=== PATIENT | female | born 1985 | race Caucasian/White ===

== ENCOUNTER 2018-02-13 22:38 | Emergency (ER) | payer OTHER ==
[2018-02-13] MEDS ORDERED: FAMOTIDINE 20 MG/2 ML VIAL IV ONE (23:29)
[2018-02-13] MEDS ORDERED: DICYCLOMINE HCL 10 MG CAP ONE (23:29)
[2018-02-13] MEDS ORDERED: ONDANSETRON 4 MG/2 ML VIAL ONE (23:29)
[2018-02-13] MEDS ORDERED: NA CHLORIDE 0.9% 1,000 ML ONE (23:29)
[2018-02-13 23:42] LABS: Absolute Lymphocytes (CBC) 1.7 K/uL (0.7-4.9); Absolute Monocytes 0.5 K/uL (0.1-1.3); Absolute Neutrophil 10.6 K/uL (1.8-8.0); Basophils % 0.3 % (0-1.3); Eosinophils % 0.5 % (0-4.4); MCH 29.7 pg (27.0-35.0); MCV 85.9 fL (80-100); MPV 9.2 fL (7.6-11.3); Monocytes % 4.2 % (3.3-12.3); RBC Red Blood Cell Count 4.65 M/uL (3.86-4.86)
[2018-02-13 23:54] LABS: Potassium 3.9 mEq/L (3.6-5.0)
[2018-02-14 00:01] LABS: Albumin 4.2 g/dL (3.2-5.5); Bilirubin Direct 0.1 mg/dL (0-0.2); Bilirubin Total 0.7 mg/dL (0.3-1.2); Magnesium 1.8 mg/dL (1.8-2.5); Protein, Total 7.8 g/dL (6.0-8.3)
[2018-02-14 00:37] LABS: Urine Blood 1+ (NEG); Urine Glucose NEGATIVE (NEG); Urine Protein NEGATIVE (NEG); Urine Specific Gravity >1.030 (1.005-1.030); Urine pH 5.5 (5.0-7.0)
[2018-02-14 02:25] LABS: Urine Amorphous Sediment 4+ /HPF (NONE SEEN); Urine Bacteria 20-50 /HPF (<20); Urine Culture Reflex Order NOT NEEDED; Urine RBC NONE SEEN /HPF (NONE SEEN)
--- NOTE | 2018-02-14 04:31 | ER ---
Nurse's Notes [facility] Name: Sasha Denise Age: 32 yrs Sex: Female : 1985 Arrival Date: 02/13/2018 Time: 22:39 Bed 5 Private MD: Luis Russell S Diagnosis: Nausea and vomiting;Diarrhea, unspecified Presentation: 02/13 22:40 Presenting complaint: Patient states: that she has had a lot of stress lately and since Sunday has not been able to eat/drink without abd pain, nausea or vomiting. Also due to the stress her eyes have been twitching. Pt seen by Dr Russell today and was started on Effexor. Transition of care: patient was not received from another setting of care. Onset of symptoms was February 09, 2018. Risk Assessment: Do you want to hurt yourself or someone else? Patient reports no desire to harm self or others. Initial Sepsis Screen: Does the patient meet any 2 criteria? No. Patient's initial sepsis screen is negative. Does the patient have a suspected source of infection? No. Patient's initial sepsis screen is negative. Care prior to arrival: None. 22:40 Method Of Arrival: Ambulatory 22:40 Acuity: EARLINE 3 Triage Assessment: 02/14 03:13 GI: Reports Unable to eat and a nausea sensation. ao IRIDOLOGIST: 05:03 LMP N/A - ao Historical: - Allergies: 02/13 23:04 PENICILLINS; fc - Home Meds: 23:04 levothyroxine 75 mcg oral tab 1 tab once daily [Active]; Xanax 2 mg Oral tab 1 tab fc twice a day [Active]; Effexor Oral 75 mg daily [Active]; - PMHx: 23:04 Anxiety; Hypothyroidism; Depression; fc - PSHx: 23:04 None; fc - Immunization history:: Last tetanus immunization: up to date. - Social history:: Smoking status: Patient/guardian denies using tobacco. - Ebola Screening: : Patient negative for fever greater than or equal to 101.5 degrees Fahrenheit, and additional compatible Ebola Virus Disease symptoms Patient denies exposure to infectious person Patient denies travel to an Ebola-affected area in the 21 days before illness onset. Screenin:02 Abuse screen: Denies threats or abuse. Nutritional screening: No deficits noted. Tuberculosis screening: No symptoms or risk factors identified. Fall Risk None identified. Assessment: 23:09 General: Appears in no apparent distress. comfortable, Behavior is calm, cooperative, ao appropriate for age. Pain: Complains of pain in General weakness Pain does not radiate. Neuro: Level of Consciousness is awake, alert, obeys commands, Oriented to person, place, time, situation, Appropriate for age Moves all extremities. Speech is normal, Facial symmetry appears normal. Cardiovascular: Heart tones S1 S2. Respiratory: Airway is patent Respiratory effort is even, unlabored, Respiratory pattern is regular, symmetrical. GI: Abdomen is non-distended. : No signs and/or symptoms were reported regarding the genitourinary system. EENT: No signs and/or symptoms were reported regarding the EENT system. Derm: Skin is intact, Skin is pink, warm \T\ dry. normal, Skin temperature is warm. Musculoskeletal: Circulation, motion, and sensation intact. Range of motion:. 02/14 00:09 Reassessment: Patient appears in no apparent distress at this time. Patient and/or ao family updated on plan of care and expected duration. Pain level reassessed. Patient is alert, oriented x 3, equal unlabored respirations, skin warm/dry/pink. Patient was taken to the bathroom. 01:36 Reassessment: Patient appears in no apparent distress at this time. Patient and/or ao family updated on plan of care and expected duration. Pain level reassessed. Patient is alert, oriented x 3, equal unlabored respirations, skin warm/dry/pink. 02:20 Reassessment: Patient appears in no apparent distress at this time. Patient and/or ao family updated on plan of care and expected duration. Pain level reassessed. Patient is alert, oriented x 3, equal unlabored respirations, skin warm/dry/pink. 03:11 Reassessment: Patient appears in no apparent distress at this time. Patient and/or ao family updated on plan of care and expected duration. Pain level reassessed. Patient is alert, oriented x 3, equal unlabored respirations, skin warm/dry/pink. Patient denies pain at this time. Patient states feeling better. Vital Signs: 02/13 22:40 BP 129 / 88; Pulse 89; Resp 18; Temp 99.0(O); Pulse Ox 97% on R/A; Weight 105.69 kg (R); Height 5 ft. 5 in. (165.10 cm) (R); Pain 2/10; 02/14 00:09 BP 121 / 84; Pulse 82; Resp 16; Pulse Ox 99% on R/A; Pain 0/10; ao 01:36 BP 121 / 86; Pulse 59; Resp 16; Pulse Ox 100% on R/A; Pain 0/10; ao 02:20 BP 118 / 84; Pulse 61; Resp 18; Pulse Ox 98% on R/A; Pain 0/10; ao 03:11 BP 115 / 100; Pulse 55; Resp 18; Pulse Ox 99% on R/A; Pain 0/10; ao 02/13 22:40 Body Mass Index 38.77 (105.69 kg, 165.10 cm) fc ED Course: 02/13 22:39 Patient arrived in ED. ds1 22:40 Arm band placed on Patient placed in an exam room, on a stretcher. fc 22:40 Patient has correct armband on for positive identification. Placed in gown. Bed in low fc position. Call light in reach. 22:40 No provider procedures requiring assistance completed. fc 22:42 Luis Russell MD is Private Physician. ds1 23:01 Triage completed. fc 23:05 Romario Crowell PA is PHCP. cp 23:05 Romario Drake MD is Attending Physician. cp 23:08 Blaine Donato, RN is Primary Nurse. ao 02/14 02:[address] via wheelchair. kw1 02:44 CT completed. Patient tolerated procedure well. Patient moved back from CT. kw1 02:44 CT Abd/Pelvis - W/Contrast In Process Unspecified. EDMS 04:29 Marge Glez MD is Referral Physician. cp 05:03 IV discontinued, intact, bleeding controlled, No redness/swelling at site. Pressure ao dressing applied. Administered Medications: 02/13 23:38 Drug: Zofran 4 mg Route: PO; ao 02/14 01:39 Follow up: Response: No adverse reaction ao 02/13 23:39 Drug: NS 0.9% 1000 ml Route: IV; Rate: 1 bolus; Site: left antecubital; ao 02/14 01:39 Follow up: IV Status: Completed infusion; IV Intake: 1000ml ao 02/13 23:39 Drug: Bentyl 20 mg Route: PO; ao 02/14 01:39 Follow up: Response: No adverse reaction ao 02/13 23:39 Drug: Pepcid 20 mg Route: PO; ao 02/14 01:39 Follow up: Response: No adverse reaction ao 04:50 Drug: GI Cocktail without - (Maalox Suspension 30 ml, Lidocaine Liquid 2 % 15 ao ml) Route: PO; 05:02 Follow up: Response: No adverse reaction ao Intake: 01:39 IV: 1000ml; Total: 1000ml. ao Outcome: 04:30 Discharge ordered by . gabrielle 05:03 Discharged to home ambulatory. ao 05:03 Condition: stable 05:03 Discharge instructions given to patient, Instructed on discharge instructions, follow up and referral plans. Demonstrated understanding of instructions, follow-up care, medications, Prescriptions given X 3. 05:04 Patient left the ED. ao Signatures: Dispatcher [employer] EDMS Astrid Crump RN RN fc Sanford, Demi ds1 Romario Crowell PA PA cp Ortiz, Alex, RN RN ao Wilhelm, Kimberly kw1
--- NOTE | 2018-02-14 04:31 | EDPHYS ---
Physician Documentation [facility] Name: Sasha Denise Age: 32 yrs Sex: Female : 1985 Arrival Date: 02/13/2018 Time: 22:39 Bed 5 Private MD: Luis Russell S ED Physician Romario Drake HPI: 02/13 23:16 This 32 yrs old Female presents to ER via Ambulatory with complaints of cp Nausea/Vomiting, Can't Eat. 23:16 The patient presents to the emergency department with nausea, that is moderate, cp vomiting, that is intermittent, diarrhea, that is continuous, abdominal pain, of the abdomen diffusely. Onset: The symptoms/episode began/occurred 4 day(s) ago. 23:16 Possible causes: stress. cp DIRECTOR OF EDUCATION AND TRAINING: 02/14 05:03 LMP N/A - ao Historical: - Allergies: 02/13 23:04 PENICILLINS; fc - Home Meds: 23:04 levothyroxine 75 mcg oral tab 1 tab once daily [Active]; Xanax 2 mg Oral tab 1 tab fc twice a day [Active]; Effexor Oral 75 mg daily [Active]; - PMHx: 23:04 Anxiety; Hypothyroidism; Depression; fc - PSHx: 23:04 None; fc - Immunization history:: Last tetanus immunization: up to date. - Social history:: Smoking status: Patient/guardian denies using tobacco. - Ebola Screening: : Patient negative for fever greater than or equal to 101.5 degrees Fahrenheit, and additional compatible Ebola Virus Disease symptoms Patient denies exposure to infectious person Patient denies travel to an Ebola-affected area in the 21 days before illness onset. ROS: 23:20 Constitutional: Positive for poor PO intake, Negative for body aches, chills, fever. cp 23:20 Eyes: Negative for injury, pain, redness, and discharge. cp 23:20 ENT: Negative for drainage from ear(s), ear pain, sore throat, difficulty swallowing, cp difficulty handling secretions. 23:20 Cardiovascular: Negative for chest pain, edema, palpitations. 23:20 Respiratory: Negative for cough, shortness of breath, wheezing. 23:20 Abdomen/GI: Positive for abdominal pain, nausea, vomiting, and diarrhea, anorexia, Negative for constipation, dysphagia, black/tarry stool, rectal bleeding. 23:20 Back: Negative for radiated pain. 23:20 : Negative for urinary symptoms, pelvic pain, flank pain. 23:20 Skin: Negative for cellulitis, rash. 23:20 Neuro: Negative for altered mental status, headache, weakness. 23:20 All other systems are negative. cp Exam: 23:25 Constitutional: The patient appears in no acute distress, alert, awake, cp non-diaphoretic, non-toxic, well developed, well nourished. 23:25 Head/Face: Normocephalic, atraumatic. cp 23:25 Eyes: Periorbital structures: appear normal, Pupils: equal, round, and reactive to light and accomodation, Extraocular movements: intact throughout, Conjunctiva: normal, no exudate, no injection, Sclera: no appreciated abnormality, Lids and lashes: appear normal, bilaterally. 23:25 ENT: External ear(s): are unremarkable, Ear canal(s): are normal, clear, TM's: bulging, is not appreciated, bilaterally, dullness, bilaterally, erythema, is not appreciated, bilaterally, Nose: is normal, Mouth: Lips: dry, Oral mucosa: moist, Posterior pharynx: is normal, airway is patent, no erythema, no exudate, Voice: is normal. 23:25 Neck: ROM/movement: is normal, is supple, without pain, no range of motions limitations, no meningismus, no nuchal rigidity, Lymph nodes: no appreciated lymphadenopathy. 23:25 Chest/axilla: Inspection: normal, Palpation: is normal, no crepitus, no tenderness. 23:25 Cardiovascular: Rate: normal, Rhythm: regular. cp 23:25 Respiratory: Lungs have equal breath sounds bilaterally, clear to auscultation and cp percussion. No rales, rhonchi or wheezes noted. No increased work of breathing, no retractions or nasal flaring. 23:25 Abdomen/GI: Inspection: abdomen appears normal, Bowel sounds: active, all quadrants, Palpation: soft, in all quadrants, mild abdominal tenderness, in all quadrants, rebound tenderness, is not appreciated, voluntary guarding, is not appreciated, involuntary guarding, is not appreciated. 23:25 Back: pain, is absent, ROM is normal. 23:53 ECG was reviewed by the Attending Physician. cp Vital Signs: 22:40 BP 129 / 88; Pulse 89; Resp 18; Temp 99.0(O); Pulse Ox 97% on R/A; Weight 105.69 kg fc (R); Height 5 ft. 5 in. (165.10 cm) (R); Pain 2/10; 02/14 00:09 BP 121 / 84; Pulse 82; Resp 16; Pulse Ox 99% on R/A; Pain 0/10; ao 01:36 BP 121 / 86; Pulse 59; Resp 16; Pulse Ox 100% on R/A; Pain 0/10; ao 02:20 BP 118 / 84; Pulse 61; Resp 18; Pulse Ox 98% on R/A; Pain 0/10; ao 03:11 BP 115 / 100; Pulse 55; Resp 18; Pulse Ox 99% on R/A; Pain 0/10; ao 02/13 22:40 Body Mass Index 38.77 (105.69 kg, 165.10 cm) fc MDM: 02/13 23:06 Patient medically screened. cp 02/14 00:00 Differential diagnosis: gastritis, cholecystitis, pancreatitis, appendicitis, viral cp gastroenteritis, gastroenteritis, colitis, dehydration. 04:23 Data reviewed: vital signs, nurses notes, lab test result(s), radiologic studies, CT cp scan. Transition of care: After a detail discussion of the patient's case, care is transferred to Romario Drake MD. 02/13 23:18 Order name: Amylase, Serum; Complete Time: 01:01 cp 02/13 23:18 Order name: Basic Metabolic Panel; Complete Time: 01: cp 02/14 04:31 Interpretation: Normal except: GFR 74. cp 02/13 23:18 Order name: CBC with Diff; Complete Time: 01: cp 02/14 04:30 Interpretation: Normal except: WBC 12.9; JACKELINE% 82.0; LYM% 13.0; NEUT A 10.6. cp 02/13 23:18 Order name: Creatinine for Radiology; Complete Time: 01: cp 02/13 23:18 Order name: Hepatic Function; Complete Time: 01: cp 02/13 23:18 Order name: Lipase; Complete Time: 01: cp 02/13 23:18 Order name: Urine Microscopic Only; Complete Time: 03:34 cp 02/14 03:34 Interpretation: Normal except: UWBC 5-10; UBACT 20-50; SQEPI 5-10; AMORPH 4+. cp 02/13 23:18 Order name: Magnesium; Complete Time: 01:01 cp 02/14 00:19 Order name: Urine Dipstick--Ancillary (enter results); Complete Time: 01:01 rg2 02/14 00:19 Order name: Urine --Ancillary (enter results); Complete Time: 01:01 rg2 02/14 01:01 Order name: CT Abd/Pelvis - W/Contrast cp 02/13 23:18 Order name: Urine Test (obtain specimen); Complete Time: 01:40 cp 02/13 23:18 Order name: IV Saline Lock; Complete Time: 23:25 cp 02/13 23:18 Order name: Labs collected and sent; Complete Time: 23:25 cp 02/13 23:18 Order name: Urine Dipstick-Ancillary (obtain specimen); Complete Time: 01:40 cp 02/13 23:18 Order name: EKG; Complete Time: 23:18 cp 02/13 23:18 Order name: EKG - Nurse/Tech; Complete Time: 01:40 cp 02/14 04:26 Order name: PO challenge; Complete Time: 04:47 cp EC/13 23:53 Rate is 71 beats/min. Rhythm is regular. NE interval is normal. QRS interval is normal. cp QT interval is normal. No ST changes noted. Interpreted by me. Reviewed by me. Administered Medications: 23:38 Drug: Zofran 4 mg Route: PO; ao 02/14 01:39 Follow up: Response: No adverse reaction ao 02/13 23:39 Drug: NS 0.9% 1000 ml Route: IV; Rate: 1 bolus; Site: left antecubital; ao 02/14 01:39 Follow up: IV Status: Completed infusion; IV Intake: 1000ml ao 02/13 23:39 Drug: Bentyl 20 mg Route: PO; ao 02/14 01:39 Follow up: Response: No adverse reaction ao 02/13 23:39 Drug: Pepcid 20 mg Route: PO; ao 02/14 01:39 Follow up: Response: No adverse reaction ao 04:50 Drug: GI Cocktail without - (Maalox Suspension 30 ml, Lidocaine Liquid 2 % 15 ao ml) Route: PO; 05:02 Follow up: Response: No adverse reaction ao Disposition: 07:17 Co-signature as Attending Physician, Romario Drake MD I agree with the assessment and [facility] plan of care. Disposition: 02/14/18 04:30 Discharged to Home. Impression: Nausea and vomiting, Diarrhea, unspecified. - Condition is Stable. - Discharge Instructions: Food Choices to Help Relieve Diarrhea, Adult, Diarrhea, Nausea and Vomiting. - Prescriptions for Bentyl 20 mg Oral Tablet - take 1 tablet by ORAL route every 6 hours As needed; 30 tablet. Pepcid 20 mg Oral Tablet - take 1 tablet by ORAL route every 12 hours for 10 days; 20 tablet. Zofran 4 mg Oral Tablet - take 1 tablet by ORAL route every 12 hours As needed; 20 tablet. - Medication Reconciliation Form, Thank You Letter, Antibiotic Education, Prescription Opioid Use form. - Follow up: Marge Glez MD; When: 1 - 2 days; Reason: Recheck today's complaints. - Problem is new. - Symptoms have improved. Signatures: Dispatcher [employer] EDTX Romario Drake MD MD cha Chretien, Felicia, RN RN Romario Crowell PA PA Blaine Mccall, RN RN ao Corrections: (The following items were deleted from the chart) 04:30 03:34 Normal except: WBC 12.9. cp cp 05:04 04:30 02/14/2018 04:30 Discharged to Home. Impression: Nausea and vomiting; Diarrhea, ao unspecified. Condition is Stable. Forms are Medication Reconciliation Form, Thank You Letter, Antibiotic Education, Prescription Opioid Use. Follow up: Marge Glez; When: 1 - 2 days; Reason: Recheck today's complaints. Problem is new. Symptoms have improved. cp
[2018-02-14] MEDS ORDERED: LIDOCAINE VISCOUS 2% SOLN 15 ML UDC ONE (04:53)
[2018-02-14] MEDS ORDERED: MAGNE/ALUM HYDROXD 30 ML UCUP ONE (04:53)
[2018-02-14 05:35] VITALS: TEMP 99
[2018-02-14 05:40] VITALS: BP 115/100; O2SAT 99
--- NOTE | 2018-02-14 08:25 | EKG ---
Test Date: 2018-02-13 Test Time: 23:49:24 Supervisor Grounds: JO-ANN MEASUREMENT RESULTS: Intervals: Rate: 71 NM: 116 QRSD: 78 QT: 386 QTc: 419 [place]: P: 35 NM: 116 QRS: 25 T: 8 INTERPRETIVE STATEMENTS: Normal sinus rhythm with sinus arrhythmia Nonspecific T wave abnormality Abnormal ECG Compared to ECG 09/11/2017 20:39:52 T-wave abnormality now present ST (T wave) deviation no longer present Possible ischemia no longer present Electronically Signed On 02-14-18 08:24:30 CDT by Jair Potts
--- NOTE | 2018-02-14 08:58 | RAD REPORT ---
EXAM DESCRIPTION: CTAbdomen Pelvis W Contrast - 02/14/2018 7:16 am CLINICAL HISTORY: Abdominal pain. N/V/D;Abd pain COMPARISON: Chest For Pe Angio dated 09/11/2017 None. TECHNIQUE: Biphasic CT imaging of the abdomen and pelvis was performed with 100 ml non-ionic IV cont rast. All CT scans are performed using dose optimization technique as appropriate and may include automated exposure control or mA/KV adjustment according to patient size. FINDINGS: The lung bases are clear. The liver, spleen, pancreas, adrenal glands and kidneys are within normal limits. No bowel obstruction, free air, free fluid or abscess. The appendix is normal. No evidence of signi ficant lymphadenopathy. No suspicious bony findings. IMPRESSION: No acute intra-abdominal or pelvic finding.
== END 2018-02-14 05:04 | disposition home or self-care (01) ==
LOC: ER 22:38
DX: R19.7 Diarrhea, unspecified (principal); F41.9 Anxiety disorder, unspecified; F32.9 Major depressive disorder, single episode, unspecified; E03.9 Hypothyroidism, unspecified; Z88.0 Allergy status to penicillin
CPT/HCPCS: 36415; 74177; 80048; 80076; 81003; 81015; 81025; 82150; 83690; 83735; 85025; 93005; 96360; 96361; 99284; J2405; J7030; Q9967

== ENCOUNTER 2018-11-07 17:31 | Emergency (ER) | payer OTHER ==
--- OUTSIDE RECORDS SUMMARY | 2018-11-07 17:33 | XMS REPORT ---
:1985 Author Organization [facility] Address [address] [place] [address] Dr. Fry [address] [place] [id number] Care Team Providers Name Role Phone Unavailable Unavailable Unavailable Problems This patient has no known problems. Allergies, Adverse Reactions, Alerts This patient has no known allergies or adverse reactions. Medications This patient has no known medications.
[2018-11-07 21:11] LABS: Absolute Lymphocytes (CBC) 1.6 K/uL (0.7-4.9); Absolute Monocytes 0.5 K/uL (0.1-1.3); Absolute Neutrophil 4.5 K/uL (1.8-8.0); Basophils % 0.9 % (0-1.3); Eosinophils % 1.6 % (0-4.4); Hematocrit 40.3 % (36.0-45.0); Lymphocytes % 23.2 % (15.3-44.8); MPV 9.7 fL (7.6-11.3); Monocytes % 7.1 % (3.3-12.3); RBC Red Blood Cell Count 4.55 M/uL (3.86-4.86)
[2018-11-07] MEDS ORDERED: NA CHLORIDE 0.9% 1,000 ML ONE (21:19)
[2018-11-07] MEDS ORDERED: MORPHINE 4 MG/ML SYR ONE (21:19)
[2018-11-07 21:25] LABS: ALT/SGPT 25 U/L (12-78); AST/SGOT 16 U/L (15-37); Albumin 3.5 g/dL (3.4-5.0); Alkaline Phosphatase 102 U/L (45-117); BUN Blood Urea Nitrogen 7 mg/dL (7-18); Bicarbonate 27 mmol/L (21-32); Bilirubin Direct < 0.1 mg/dL (0-0.2); Bilirubin Total 0.2 mg/dL (0.2-1.0); Glucose Level 84 mg/dL (74-106); Lipase 146 U/L (73-393); Potassium 4.3 mmol/L (3.5-5.1); Sodium Level 147 mmol/L (136-145)
--- NOTE | 2018-11-07 22:31 | ER ---
Nurse's Notes [facility] Name: Sasha Denise Age: 33 yrs Sex: Female : 1985 Arrival Date: 11/07/2018 Time: 17:31 Bed 23 Private MD: Luis Russell S Diagnosis: Generalized abdominal pain Presentation: 11/07 17:58 Presenting complaint: Lower abdominal pain, nausea, and diarrhea z 1 month. Pt reports hb she was previously treated for C Diff, recent C Diff was negative. Transition of care: patient was not received from another setting of care. Onset of symptoms is unknown. Risk Assessment: Do you want to hurt yourself or someone else? Patient reports no desire to harm self or others. Care prior to arrival: None. 17:58 Method Of Arrival: Ambulatory hb 17:58 Acuity: EARLINE 3 hb Historical: - Allergies: 18:01 PENICILLINS; hb - Home Meds: 18:01 levothyroxine 75 mcg tab 1 tab once daily [Active]; Xanax 2 mg Oral tab 1 tab twice a hb day [Active]; - PMHx: 18:01 Anxiety; Depression; Hypothyroidism; hb - PSHx: 18:01 None; hb - Immunization history:: Adult Immunizations up to date. - Social history:: Smoking status: Patient/guardian denies using tobacco, Patient/guardian denies using alcohol, street drugs, The patient lives with family. - Ebola Screening: : No symptoms or risks identified at this time. - Family history:: not pertinent. Screenin:49 Abuse screen: Denies threats or abuse. Nutritional screening: No deficits noted. tl3 Tuberculosis screening: No symptoms or risk factors identified. Fall Risk None identified. Assessment: 19:49 General: Appears uncomfortable, well groomed, well developed, well nourished, Behavior tl3 is calm, cooperative, appropriate for age. Pain: Complains of pain in right upper quadrant. Neuro: Level of Consciousness is awake, alert, obeys commands, Oriented to person, place, time, situation, Appropriate for age. Cardiovascular: Patient's skin is warm and dry. Respiratory: Airway is patent Respiratory effort is even, unlabored, Respiratory pattern is regular, symmetrical. GI: Abdomen is tender to palpation in right upper quadrant and right lower quadrant Reports anorexia, diarrhea. : No signs and/or symptoms were reported regarding the genitourinary system. EENT: No signs and/or symptoms were reported regarding the EENT system. Derm: No signs and/or symptoms reported regarding the dermatologic system. Musculoskeletal: No signs and/or symptoms reported regarding the musculoskeletal system. 19:49 Reassessment: pt reports that she was suppose to have gal bladder scan this am, but had tl3 to reschedule, experiencing right sided upper abdominal pain, watery diarrhea unable to tolerate foods. 21:20 Reassessment: Patient appears in no apparent distress at this time. No changes from tl3 previously documented assessment. Patient and/or family updated on plan of care and expected duration. Pain level reassessed. Patient is alert, oriented x 3, equal unlabored respirations, skin warm/dry/pink. pt resting quietly. 22:13 Reassessment: Patient appears in no apparent distress at this time. No changes from tl3 previously documented assessment. Patient and/or family updated on plan of care and expected duration. Pain level reassessed. Patient is alert, oriented x 3, equal unlabored respirations, skin warm/dry/pink. pt states that pain is better, no needs at this time. 22:51 Reassessment: Patient appears in no apparent distress at this time. Patient and/or jb4 family updated on plan of care and expected duration. Pain level reassessed. Patient is alert, oriented x 3, equal unlabored respirations, skin warm/dry/pink. Vital Signs: 17:59 BP 136 / 87; Pulse 78; Resp 16; Temp 98.2; Pulse Ox 100% on R/A; Pain 5/10; hb 19:49 BP 119 / 84; Pulse 78; Resp 18; Pulse Ox 100% on R/A; tl3 21:20 BP 102 / 65; Pulse 76; Resp 18; Pulse Ox 96% ; tl3 22:13 BP 119 / 84; Pulse 77; Resp 18; Pulse Ox 100% on R/A; tl3 22:51 BP 121 / 87; Pulse 89; Resp 16; Pulse Ox 100% on R/A; jb4 ED Course: 17:31 Patient arrived in ED. rg4 17:32 Luis Russell MD is Private Physician. rg4 17:59 Triage completed. hb 18:01 Arm band placed on. EKG completed in triage. Results shown to MD. hb 19:06 Norma Salazar, RN is Primary Nurse. tl3 19:23 Placed in gown. Bed in low position. Call light in reach. Side rails up X 1. Warm jp3 blanket given. Pulse ox on. NIBP on. 19:24 EKG done, by ED staff, reviewed by Davie Park MD. jp3 19:49 No provider procedures requiring assistance completed. Initial lab(s) drawn, by me. tl3 Inserted saline lock: 20 gauge in right in left antecubital area, using aseptic technique. Blood collected. 19:57 Davie Park MD is Attending Physician. ma2 20:47 US Abdomen Limited: RUQ Sent. tl3 20:47 ultrasound at bedside. tl3 21:19 Basic Metabolic Panel Sent. tl3 21:19 CBC with Diff Sent. tl3 21:19 Creatinine for Radiology Sent. tl3 21:19 Hepatic Function Sent. tl3 21:19 Lipase Sent. tl3 22:51 IV discontinued, intact, bleeding controlled. jb4 Administered Medications: 20:38 Drug: NS 0.9% 1000 ml Route: IV; Rate: 1 bolus; Site: left antecubital; Delivery: tl3 Primary tubing; 22:17 Follow up: IV Status: Completed infusion; IV Intake: 1000ml tl3 21:18 Drug: morphine 4 mg Route: IVP; Infused Over: 2 mins; Site: right antecubital; tl3 22:17 Follow up: Response: Pain is decreased tl3 21:18 Not Given (Patient Refused; took 8mg of home RX of Zofran): Zofran 4 mg IVP once; over tl3 2 minutes Intake: 22:17 IV: 1000ml; Total: 1000ml. tl3 Outcome: 22:31 Discharge ordered by . ma2 22:51 Discharged to home ambulatory. jb4 22:51 Condition: stable 22:51 Discharge instructions given to patient, Instructed on discharge instructions, follow up and referral plans. Demonstrated understanding of instructions, follow-up care. 22:54 Patient left the ED. jb4 Signatures: Caty Pascual, RN Mini Rockwell 4 Omar Hernandes RN RN jb4 Davie Park MD MD miNorma Barrera, RN RN tl3 Pisarski, Toi jp3
--- NOTE | 2018-11-07 22:31 | EDPHYS ---
Physician Documentation [facility] Name: Sasha Denise Age: 33 yrs Sex: Female : 1985 Arrival Date: 11/07/2018 Time: 17:31 Bed 23 Private MD: Luis Russell S ED Physician [place] HPI: 11/07 21:28 This 33 yrs old Female presents to ER via Ambulatory with complaints of ma2 Diarrhea, Nausea, Chest Pain, Abdominal Pain. 21:28 The patient presents to the emergency department with diarrhea. Onset: The ma2 symptoms/episode began/occurred gradually, 2 month(s) ago. Possible causes: unknown. Associated signs and symptoms: Pertinent negatives: anorexia, constipation, dysuria, flatulence. Severity of symptoms: At their worst the symptoms were very mild in the emergency department the symptoms are unchanged. The patient has experienced similar episodes in the past. had c-dif diarrhea in past here w diarrhea for 3 months mild unchanged tensted negative for c.dif last week twice, has new ruq abd pain, has f/u with gi, symptoms unchanged for months . Historical: - Allergies: 18:01 PENICILLINS; hb - Home Meds: 18:01 levothyroxine 75 mcg tab 1 tab once daily [Active]; Xanax 2 mg Oral tab 1 tab twice a hb day [Active]; - PMHx: 18:01 Anxiety; Depression; Hypothyroidism; hb - PSHx: 18:01 None; hb - Immunization history:: Adult Immunizations up to date. - Social history:: Smoking status: Patient/guardian denies using tobacco, Patient/guardian denies using alcohol, street drugs, The patient lives with family. - Ebola Screening: : No symptoms or risks identified at this time. - Family history:: not pertinent. ROS: 21:28 Constitutional: Negative for fever, chills, and weight loss. ma2 21:28 Abdomen/GI: Positive for diarrhea, abdominal cramps, Negative for nausea, rectal bleeding, bowel incontinence. 21:28 All other systems are negative. Exam: 21:28 Constitutional: This is a well developed, well nourished patient who is awake, alert, ma2 and in no acute distress. Chest/axilla: Normal chest wall appearance and motion. Nontender with no deformity. No lesions are appreciated. Cardiovascular: Regular rate and rhythm with a normal S1 and S2. No gallops, murmurs, or rubs. Normal PMI, no JVD. No pulse deficits. Respiratory: Lungs have equal breath sounds bilaterally, clear to auscultation and percussion. No rales, rhonchi or wheezes noted. No increased work of breathing, no retractions or nasal flaring. Abdomen/GI: Soft, non-tender, with normal bowel sounds. No distension or tympany. No guarding or rebound. No evidence of tenderness throughout. Skin: Warm, dry with normal turgor. Normal color with no rashes, no lesions, and no evidence of cellulitis. MS/ Extremity: Pulses equal, no cyanosis. Neurovascular intact. Full, normal range of motion. Neuro: Awake and alert, GCS 15, oriented to person, place, time, and situation. Cranial nerves II-XII grossly intact. Motor strength 5/5 in all extremities. Sensory grossly intact. Cerebellar exam normal. Normal gait. Vital Signs: 17:59 BP 136 / 87; Pulse 78; Resp 16; Temp 98.2; Pulse Ox 100% on R/A; Pain 5/10; hb 19:49 BP 119 / 84; Pulse 78; Resp 18; Pulse Ox 100% on R/A; tl3 21:20 BP 102 / 65; Pulse 76; Resp 18; Pulse Ox 96% ; tl3 22:13 BP 119 / 84; Pulse 77; Resp 18; Pulse Ox 100% on R/A; tl3 22:51 BP 121 / 87; Pulse 89; Resp 16; Pulse Ox 100% on R/A; jb4 MDM: 19:57 Patient medically screened. [facility] 21:28 Differential diagnosis: gastritis, cholecystitis, pancreatitis, viral gastroenteritis, ma2 gastroenteritis. 22:28 Data reviewed: vital signs, nurses notes. Counseling: I had a detailed discussion with maRasta the patient and/or guardian regarding: the historical points, exam findings, and any diagnostic results supporting the discharge/admit diagnosis, the presence of at least one elevated blood pressure reading (>120/80) during this emergency department visit, the need for outpatient follow up. Response to treatment: the patient's symptoms have markedly improved after treatment. 11/07 21:11 Order name: CBC with Automated Diff; Complete Time: 22:00 EDMS 11/07 21:19 Order name: Creatinine (Radiology Only); Complete Time: 22:00 EDMS 11/07 21:26 Order name: Basic Metabolic Panel; Complete Time: 22:00 EDAR 11/07 21:26 Order name: Liver (Hepatic) Function; Complete Time: 22:00 EDMS 11/07 21:26 Order name: Lipase; Complete Time: 22:00 EDAR 11/07 20:21 Order name: IV Saline Lock; Complete Time: 20:39 vt2 11/07 20:21 Order name: Labs collected and sent; Complete Time: 20:39 ma2 Administered Medications: 20:38 Drug: NS 0.9% 1000 ml Route: IV; Rate: 1 bolus; Site: left antecubital; Delivery: tl3 Primary tubing; 22:17 Follow up: IV Status: Completed infusion; IV Intake: 1000ml tl3 21:18 Drug: morphine 4 mg Route: IVP; Infused Over: 2 mins; Site: right antecubital; tl3 22:17 Follow up: Response: Pain is decreased tl3 21:18 Not Given (Patient Refused; took 8mg of home RX of Zofran): Zofran 4 mg IVP once; over tl3 2 minutes Disposition: 11/07/18 22:31 Discharged to Home. Impression: Generalized abdominal pain. - Condition is Stable. - Discharge Instructions: Abdominal Pain, Adult, Form - Excuse from Work, School, or Physical Activity. - Work release form, Medication Reconciliation Form, Thank You Letter, Antibiotic Education, Prescription Opioid Use form. - Follow up: Private Physician; When: Today; Reason: Continuance of care. Signatures: Dispatcher [employer] [facility] Caty Pascual RN KARI Omar Hernandes RN RN jb4 [place] MD MD ma2 Norma Salazar RN RN tl3 Corrections: (The following items were deleted from the chart) 22:54 22:31 11/07/2018 22:31 Discharged to Home. Impression: Generalized abdominal pain. jb4 Condition is Stable. Forms are Medication Reconciliation Form, Thank You Letter, Antibiotic Education, Prescription Opioid Use. Follow up: Private Physician; When: Today; Reason: Continuance of care. ma2
[2018-11-07 23:00] VITALS: TEMP 98.2
[2018-11-07 23:04] VITALS: O2SAT 100
[2018-11-07 23:06] VITALS: BP 121/87
--- NOTE | 2018-11-08 08:06 | RAD REPORT ---
EXAM DESCRIPTION: US - Abdomen Exam Limited - 11/07/2018 9:10 pm CLINICAL HISTORY: ABD PAIN RUQ COMPARISON: No comparisons FINDINGS: The gallbladder demonstrates no gallstones. No pericholecystic fluid or gallbladder wall t hickening. The common bile duct is normal measuring 4 mm. The liver demonstrates no findings of intrahepatic biliary dilatation. IMPRESSION: Unremarkable examination.
--- NOTE | 2018-11-08 13:43 | EKG ---
Test Date: 2018-11-07 Test Time: 19:17:40 Furniture Repair Technician: DARRELL MEASUREMENT RESULTS: Intervals: Rate: 72 DE: 118 QRSD: 74 QT: 366 QTc: 400 [place]: P: 51 DE: 118 QRS: 54 T: 80 INTERPRETIVE STATEMENTS: Normal sinus rhythm with sinus arrhythmia Nonspecific ST and T wave abnormality Abnormal ECG Compared to ECG 02/13/2018 23:49:24 ST (T wave) deviation now present T-wave abnormality no longer present Electronically Signed On 11-08-18 13:42:06 NETWORK COORDINATOR by Porter Fatima
== END 2018-11-07 22:54 | disposition home or self-care (01) ==
LOC: ER 17:31
DX: R10.84 Generalized abdominal pain (principal); E03.9 Hypothyroidism, unspecified; F32.9 Major depressive disorder, single episode, unspecified; F41.9 Anxiety disorder, unspecified; Z88.0 Allergy status to penicillin
CPT/HCPCS: 36415; 76705; 80048; 80076; 83690; 85025; 93005; 96361; 96374; 99284; J7030

== ENCOUNTER 2019-06-03 17:18 | Emergency (ER) | payer OTHER ==
--- NOTE | 2019-06-03 17:37 | ER ---
Nurse's Notes [facility] Name: Sasha Orourke Age: 33 yrs Sex: Female : 1985 Arrival Date: 06/03/2019 Time: 17:19 Bed Waiting Private MD: Luis Russell S Diagnosis: Presentation: 06/03 17:35 Note Patient came up to registration staff, screaming, cursing at registration staff aj1 before walking out the door. ED Course: 17:19 Patient arrived in ED. mr 17:21 Luis Russell MD is Private Physician. mr Administered Medications: No medications were administered Outcome: 17:36 Eloped from waiting room. aj1 17:36 Patient left the ED. aj1 Signatures: Dolores Magaña RN RN aj1 Veda Gaspar mr
== END 2019-06-03 17:36 | disposition left against medical advice (07) ==
LOC: ER 17:18
DX: Z53.21 Procedure and treatment not carried out due to patient leaving prior to being seen by health care provider (principal)

== ENCOUNTER 2020-10-06 17:32 | Emergency (ER) | payer OTHER ==
--- OUTSIDE RECORDS SUMMARY | 2020-10-06 17:34 | XMS REPORT | Continuity of Care Document ---
:1985 Author Organization [facility] t Address [address] [place] [address] Care Team Providers Name Role Phone Drew ARNETT Attending Clinician Heath Herrera Attending Clinician Problems This patient has no known problems. Allergies, Adverse Reactions, Alerts This patient has no known allergies or adverse reactions. Medications This patient has no known medications. Procedures This patient has no known procedures. Encounters Start End Encounter Admission Attending Care Care Encounter Source Date/Time Date/Time Type Type Clinicians Facility Department ID 2020-10-06 2020-10-06 Patient Drew [facility] [id number] 00:00:00 00:00:00 Secure [facility] [id number] [place] [id number] Professoni [id number] nal [address] 2020-10-06 2020-10-06 Telephone Drew INDESHAUN [id number] 00:00:00 00:00:00 [facility] [id number] [place] [id number] Professio [id number] nal 0[address] 2020-10-05 2020-10-05 Office Derrick [facility] [id number] 14:11:14 14:46:29 Visit Jenaro Joe MANAGER [facility] [id number] [facility] [id number] MATERNAL [id number] & CHILD [address] [place] [address] Results This patient has no known results.
--- OUTSIDE RECORDS SUMMARY | 2020-10-06 17:34 | XMS REPORT | Summary of Care ---
:1985 Author Organization [facility] Address [address] [place] [address] Care Team Providers Name Role Phone Maurizio Holbrook Insurance Hmo MD Drew Primary Care Provider Reason for Visit Reason Comments Refill Request Encounter Details Date Type Department Care Team Description 07/09/2020 Refill [facility] Igor villatoro, MD Luis Refill Request - [address] [place] [address] [place] [address] [phone] Allergies No Known Allergiesdocumented as of this encounter (statuses as of 07/09/2020) Medications Medication Sig Dispensed Refills Start Date End Date Status ZOLMitriptan 5 mg Take 1 tablet 9 tablet 5 02/06/2019 Active tabletIndications: by mouth as Intractable needed for persistent migraine Migraine. May aura without repeat in 2 cerebral infarction hours times one and without status if [place] not migrainosus improving topiramate 50 mg Take 1 tablet 60 tablet 6 02/21/2019 Active tabletIndications: by mouth 2 Intractable (two) times persistent migraine daily. aura without cerebral infarction and without status migrainosus butorphanol 10 mg/mL Use 1 [place] in 2.5 mL 1 12/02/2019 Active nasal each nostril 3 sprayIndications: (three) times Intractable daily as needed persistent migraine for Pain (Only aura without use when other cerebral infarction headache meds and without status have not migrainosus helped). IBUPROFEN 800 mg TAKE ONE (1) 90 tablet 4 03/23/2020 Active tabletIndications: TABLET(S) BY Neck pain MOUTH EVERY EIGHT HOURS NEEDED FOR PAIN. zolpidem 10 mg TAKE ONE (1) 30 tablet 5 03/31/2020 A ctive tabletIndications: TABLET(S) BY Insomnia, MOUTH AT unspecified type BEDTIME NEEDED FOR INSOMNIA. tiZANidine 4 mg TAKE ONE (1) 60 tablet 5 03/31/2020 Active tabletIndications: TABLET(S) BY Neck pain MOUTH EVERY SIX HOURS NEEDED FOR PAIN OR MUSCLE TIGHTNESS. ALPRAZolam 2 mg TAKE ONE (1) 60 tablet 5 03/31/2020 Active tabletIndications: TABLET BY MOUTH Anxiety TWICE A DAY NEEDED FOR SLEEP. escitalopram oxalate Take 1 tablet 30 tablet 5 03/31/2020 Active 10 mg by mouth daily. tabletIndications: Anxiety levothyroxine 100 Take 1 tablet 30 tablet 3 04/09/2020 Active mcg by mouth every tabletIndications: morning. Hypothyroidism, unspecified type ONDANSETRON 4 mg DISSOLVE ONE 20 tablet 0 07/09/2020 Active disintegrating (1) TABLET(S) tabletIndications: BY MOUTH EVERY New daily persistent FOUR HOURS headache NEEDED FOR NAUSEA AND VOMITING. ondansetron 4 mg DISSOLVE ONE 20 tablet 0 06/03/2020 Discontinued disintegrating (1) TABLET(S) 0 tabletIndications: BY MOUTH EVERY New daily persistent FOUR HOURS headache NEEDED FOR NAUSEA AND VOMITING. documented as of this encounter (statuses as of 07/09/2020) Active Problems Problem Noted Date Anxiety 01/09/2019 History of depression 10/11/2017 History of anxiety 10/11/2017 Family history of breast cancer 10/11/2017 Overview: Patient reports maternal grandmother bilateral mastectomy due to breast CA dx at 33, and all great Aunts (x4) all diagnosed with breast CA in the right breast. Maternal Great uncle dx with right breas t CA Lump or mass in breast 10/11/2017 Overview: Right breast lump off on since the age o f 18. Depo-Provera contraceptive status 08/02/2016 Well woman exam 08/02/2015 Obesity (BMI 30-39.9) 08/02/2015 Dysmenorrhea 08/02/2015 Dyspareunia 08/02/2015 Tobacco use disorder 08/02/2015 Encounter for other general counseling or advice on co ntraception 08/02/2015 Hypothyroidism 06/15/2015 Bipolar affective disorder, currently active 5 documented as of this encounter (statuses as of 07/09/2020) Resolved Problems Problem Noted Date Resolved Date BV (bacterial vaginosis) 08/02/2015 08/02/2016 Pain pelvic 08/02/2015 08/02/2016 Screen for STD (sexually transmitted disease) 08/02/2015 08/02/2016 Depo-Provera contraceptive status 08/02/20152015 Chronic neck pain 06/15/2015 08/02/2015 Chronic migraine without aura 06/15/2015 08/02/2015 documented as of this encounter (statuses as of 07/09/2020) Immunizations Name Administration Dates Next Due TDAP 04/03/2017, 07/28/2013 documented as of this encounter Social History Tobacco Use Types Packs/Day Years Used Date Former Smoker Cigarettes 1 20 Quit: 02/02/20 15 Smokeless Tobacco: Never Used Alcohol Use Drinks/Week oz/Week Comments Yes 0 Standard drinks or equivalent 0.0 socially Sex Assigned at Date Recorded Not on file documented as of this encounter Last Filed Vital Signs Not on filedocumented in this encounter Plan of Treatment Health Maintenance Due Date Last Done Comments INFLUENZA VACCINE (#1) 2020 Depression Screening 09/29/2020 09/29/2019 PAP SMEAR 10/11/2020 10/11/2017, 08/02/2016, 07/28/2015, Additional history exists DTaP,Tdap,and Td Vaccines 04/03/2027 04/03/2017, 07/28/2013 (3 - Td) PNEUMOCOCCAL 0-64 YEARS Aged Out No longe r eligible COMBINED SERIES based on patient 's age to complete this topic VARICELLA VACCINES Discontinued documented as of this encounter Results Not on filedocumented in this encounter Visit Diagnoses Diagnosis New daily persistent headache documented in this encounter Insurance Payer Benefit Plan / Subscriber ID Effective Phone Address T ype Group [facility] [id number] 2017-Pres 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
--- OUTSIDE RECORDS SUMMARY | 2020-10-06 17:35 | XMS REPORT | Summary of Care ---
:1985 Author Organization [facility] Address [address] [place] [address] Care Team Providers Name Role Phone Maurizio Holbrook Insurance Hmo MD Drew Primary Care Provider Reason for Visit Reason Comments Refill Request Encounter Details Date Type Department Care Team Description 08/13/2020 Refill [facility] Bo Ríos MD Refill Request Neurology-[address] [place] [address] [address] [place] [address] [phone] Allergies No Known Allergiesdocumented as of this encounter (statuses as of 08/16/2020) Medications Medication Sig Dispensed Refills Start Date End Date Status ZOLMitriptan 5 mg Take 1 tablet by 9 tablet 5 02/06/2019 Active tabletIndications: mouth as needed Intractable persistent for Migraine. May migraine aura without repeat in 2 hours cerebral infarction and times one if [place]INGS[place] without status not improving migrainosus topiramate 50 mg Take 1 tablet by 60 tablet 6 02/21/2019 Active tabletIndications: mouth 2 (two) Intractable persistent times daily. migraine aura without cerebral infarction and without status migrainosus butorphanol 10 mg/mL Use 1 [place] in 2.5 mL 1 12/02/2019 Active nasal sprayIndications: each nostril 3 Intractable persistent (three) times migraine aura without daily as needed cerebral infarction and for Pain (Only without status use when other migrainosus headache meds have not helped). IBUPROFEN 800 mg TAKE ONE (1) 90 tablet 4 03/23/2020 Active tabletIndications: Neck TABLET(S) BY pain MOUTH EVERY EIGHT HOURS NEEDED FOR PAIN. zolpidem 10 mg TAKE ONE (1) 30 tablet 5 03/31/2020 A ctive tabletIndications: TABLET(S) BY Insomnia, unspecified MOUTH AT BEDTIME type NEEDED FOR INSOMNIA. tiZANidine 4 mg TAKE ONE (1) 60 tablet 5 03/31/2020 Active tabletIndications: Neck TABLET(S) BY pain MOUTH EVERY SIX HOURS NEEDED FOR PAIN OR MUSCLE TIGHTNESS. ALPRAZolam 2 mg TAKE ONE (1) 60 tablet 5 03/31/2020 Active tabletIndications: TABLET BY MOUTH Anxiety TWICE A DAY NEEDED FOR SLEEP. escitalopram oxalate 10 Take 1 tablet by 30 tablet 5 0 Active mg tabletIndications: mouth daily. Anxiety levothyroxine 100 mcg Take 1 tablet by 30 tablet 3 04/09/2020 Active tabletIndications: mouth every Hypothyroidism, morning. unspecified type ONDANSETRON 4 mg DISSOLVE ONE (1) 20 tablet 0 08/13/2020 Active disintegrating TABLET(S) BY tabletIndications: New MOUTH EVERY FOUR daily persistent HOURS NEEDED headache FOR NAUSEA AND VOMITING. documented as of this encounter (statuses as of 08/16/2020) Active Problems Problem Noted Date Anxiety 01/09/2019 [...] as of this encounter (statuses as of 08/16/2020) Resolved Problems Problem Noted Date Resolved Date BV (bacterial vaginosis) 08/02/2015 08/02/2016 Pain pelvic 08/02/2015 08/02/2016 Screen for STD (sexually transmitted disease) 08/02/2015 08/02/2016 Depo-Provera contraceptive status 08/02/20152015 Chronic neck pain 06/15/2015 08/02/2015 Chronic migraine without aura 06/15/2015 08/02/2015 documented as of this encounter (statuses as of 08/16/2020) Immunizations Name Administration Dates Next Due TDAP [...] Signs Not on filedocumented in this encounter Miscellaneous Notes Telephone Encounter - Sade Granados LVN - 08/16/2020 3:19 PM CSTSpoke to patient to let her know she would need to be seen since we haven't seen her since 02-06-19. Scheduled appointment for 08-24-20. She states headaches have gotten worse. So she will discuss medications with him and see if he wants to change the medication. 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 [place] [phone] Health Maintenance Due Date Last Done Comments [...] filedocumented in this encounter Visit Diagnoses Diagnosis Intractable persistent migraine aura wit hout cerebral infarction and without status migrainosus Persistent migraine aura without cerebra l infarction, with intractable migraine, so stated, without mention of status migrai nosus documented in this encounter Insurance Payer Benefit Plan / Subscriber ID Effective Phone Address T ype Group Dates [facility] [id number] 2017-Pres 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
--- OUTSIDE RECORDS SUMMARY | 2020-10-06 17:35 | XMS REPORT | Summary of Care ---
:1985 Author Organization [facility] Address [address] [place] [address] Care Team Providers Name Role Phone Maurizio Holbrook Insurance Hmo MD Drew Primary Care Provider Reason for Visit Reason Comments Refill Request Encounter Details Date Type Department Care Team Description 08/13/2020 Refill [facility] Luis Novak MD Refill Request - [address] [place] [address] [place] [address] [phone] Allergies No Known Allergiesdocumented as of this encounter (statuses as of 08/13/2020) Medications Medication Sig Dispensed Refills Start Date [...] status migrainosus butorphanol 10 mg/mL Use 1 [place] in 2.5 mL 1 12/02/2019 Active nasal [...] 4 mg DISSOLVE ONE 20 tablet 0 08/13/2020 Active disintegrating (1) TABLET(S) tabletIndications: BY MOUTH EVERY New daily persistent FOUR HOURS headache NEEDED FOR NAUSEA AND VOMITING. ONDANSETRON 4 mg DISSOLVE ONE 20 tablet 0 07/09/2020 Discontinued disintegrating (1) TABLET(S) 0 tabletIndications: BY MOUTH EVERY New daily persistent FOUR HOURS headache NEEDED FOR NAUSEA AND VOMITING. documented as of this encounter (statuses as of 08/13/2020) Active Problems Problem Noted Date Anxiety 01/09/2019 [...] as of this encounter (statuses as of 08/13/2020) Resolved Problems Problem Noted Date Resolved Date BV (bacterial vaginosis) 08/02/2015 08/02/2016 Pain pelvic 08/02/2015 08/02/2016 Screen for STD (sexually transmitted disease) 08/02/2015 08/02/2016 Depo-Provera contraceptive status 08/02/20152015 Chronic neck pain 06/15/2015 08/02/2015 Chronic migraine without aura 06/15/2015 08/02/2015 documented as of this encounter (statuses as of 08/13/2020) Immunizations Name Administration Dates Next Due TDAP [...] ID Effective Phone Address T ype Group [facility] [id number] 2017-Pres 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
--- OUTSIDE RECORDS SUMMARY | 2020-10-06 17:35 | XMS REPORT | Summary of Care ---
:1985 Author Organization [facility] Address [address] [place] [address] Care Team Providers Name Role Phone Maurizio Holbrook Insurance Hmo MD Drew Primary Care Provider Reason for Visit Reason Comments Refill Request Encounter Details Date Type Department Care Team Description 09/06/2020 Refill [facility] Luis Novak MD Refill Request - [address] [place] [address] [place] [address] [phone] Allergies No Known Allergiesdocumented as of this encounter (statuses as of 09/06/2020) Medications Medication Sig Dispensed Refills Start Date [...] status migrainosus butorphanol 10 mg/mL Use 1 [place] in 2.5 mL 1 12/02/2019 Active nasal [...] as of this encounter (statuses as of 09/06/2020) Active Problems Problem Noted Date Anxiety 01/09/2019 [...] as of this encounter (statuses as of 09/06/2020) Resolved Problems Problem Noted Date Resolved Date BV (bacterial vaginosis) 08/02/2015 08/02/2016 Pain pelvic 08/02/2015 08/02/2016 Screen for STD (sexually transmitted disease) 08/02/2015 08/02/2016 Depo-Provera contraceptive status 08/02/20152015 Chronic neck pain 06/15/2015 08/02/2015 Chronic migraine without aura 06/15/2015 08/02/2015 documented as of this encounter (statuses as of 09/06/2020) Immunizations Name Administration Dates Next Due TDAP [...] filedocumented in this encounter Plan of Treatment Date Type Specialty Care Team Description 09/14/2020 Office Visit OB Satellites Jenaro Meza R, GUEST RELATIONS RECEPTIONIST [address] [id number] [phone] Health Maintenance Due Date Last Done Comments [...] Effective Phone Address T ype Group Dates [facility] [id number] 2017-Pres 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
--- OUTSIDE RECORDS SUMMARY | 2020-10-06 17:35 | XMS REPORT | Summary of Care ---
:1985 Author Organization [facility] Address [address] [place] [address] Care Team Providers Name Role Phone Maurizio Holbrook Insurance Hmo MD Drew Primary Care Provider Reason for Visit Reason Comments Refill Request Encounter Details Date Type Department Care Team Description 10/06/2020 Telephone [facility] Family Annika Russell MD Refill Request [facility] [employer] [address] [place] [address] [place] [address] [place] [address] [phone] Allergies Active Allergy Reactions Severity Noted Date Comments Penicillin Swelling 06/15/2015 documented as of this encounter (statuses as of 10/06/2020) Medications Medication Sig Dispensed Refills Start Date End Date Status tiZANidine 4 mg TAKE ONE (1) 60 tablet 5 03/31/2020 Active tabletIndications: TABLET(S) BY Neck pain MOUTH EVERY SIX HOURS NEEDED FOR PAIN OR MUSCLE TIGHTNESS. ALPRAZolam 2 mg TAKE ONE (1) 60 tablet 5 03/31/2020 Discontinued tabletIndications: TABLET BY 1 ( Reorder) Anxiety MOUTH TWICE A DAY NEEDED FOR SLEEP. levothyroxine 100 Take 1 30 tablet 3 04/09/2020 D iscontinued mcg tablet by 1 (Reorder) tabletIndications: mouth every Hypothyroidism, morning. unspecified type levothyroxine 100 Take 1 30 tablet 0 10/06/2020 D iscontinued mcg tablet by 1 (Reorder) tabletIndications: mouth every Hypothyroidism, morning. unspecified type documented as of this encounter (statuses as of 10/06/2020) Active Problems Problem Noted Date Class 1 obesity due to excess calories with body mass index (BMI) of 31.0 10/05/2020 to 31.9 in adult, unspecified whether serious comorbid ity present Dysuria 10/05/2020 Anxiety 01/09/2019 History of depression 10/11/2017 History [...] contraceptive status 08/02/2016 Well woman exam 08/02/2015 BMI 31.0-31.9,adult 08/02/2015 Dysmenorrhea 08/02/2015 Dyspareunia 08/02/2015 Tobacco use disorder 08/02/2015 Encounter for contraceptive management, unspecified ty pe 08/02/2015 Hypothyroidism 06/15/2015 Bipolar affective disorder, currently active 5 documented as of this encounter (statuses as of 10/06/2020) Resolved Problems Problem Noted Date Resolved Date BV (bacterial vaginosis) 08/02/2015 08/02/2016 Pain pelvic 08/02/2015 08/02/2016 Screen for STD (sexually transmitted disease) 08/02/2015 08/02/2016 Depo-Provera contraceptive status 08/02/20152015 Chronic neck pain 06/15/2015 08/02/2015 Chronic migraine without aura 06/15/2015 08/02/2015 documented as of this encounter (statuses as of 10/06/2020) Immunizations Name Administration Dates Next Due TDAP 04/03/2017, 07/28/2013 documented as of this encounter Social History Tobacco Use Types Packs/Day Years Used Date Former Smoker Cigarettes 1 20 Quit: 02/02/20 15 Smokeless Tobacco: Never Used Alcohol Use Drinks/Week oz/Week Comments Yes 0 Standard drinks or equivalent 0.0 socially Sex Assigned at Date Recorded Not on file COVID-19 Exposure Response Date Recorded In the last month, have you been in contact with No / Unsure 10/05/2020 2:21 PM SLOT MACHINE REPAIRER someone who was confirmed or suspected to have Coronavirus / COVID-19? documented as of this encounter Last Filed Vital Signs Not on filedocumented in this encounter Miscellaneous Notes Telephone Encounter - Luis Russell MD - 10/06/2020 10:41 AM CSTNeeds to be seen MACHINE REPAIRER Telephone Encounter - Natalie Ashley LVN - 10/06/2020 10:33 AM CST ALPRAZolam 2 mg tablet 60 tablet 5 03/31/[address] & Cami Hinkle cristian 03/31/2020 Cancelled her appointment she had for this morning. Next appointment: 1 elephone Encounter - Yudy Zuniga - 10/06/2020 10:26 AM CST Pt is requesting a refill on the levothyroxine 100 mcg tablet and ALPRAZolam 2 mg tablet medication. [facility] [address] aiken; Cami [phone] (Phone) documented in this encounter Plan of Treatment Date Type Specialty Care Team Description 10/19/2020 Office Visit [facility] [address], [place] [address] [phone] 11/03/2020 Office Visit Family Medicine Luis Russell MD [address], [place] [phone] 10/05/2021 Office Visit [facility]ell[facility] DerrickJenaro, PANEL FITTER [address] [place] [address] [phone] Health Maintenance Due Date Last Done Comments INFLUENZA VACCINE (#1) 2021 Postponed from 05/04/2020 (Refu sed) Depression Screening 10/05/2021 10/05/2020 PAP SMEAR 10/05/2023 10/05/2020, 10/11/2017, 08/02/2016, Additional history exists DTaP,Tdap,and Td Vaccines 04/03/2027 04/03/2017, 07/28/2013 (3 - Td) PNEUMOCOCCAL 0-64 YEARS Aged Out No longe r eligible COMBINED SERIES based on patient 's age to complete this topic VARICELLA VACCINES Discontinued documented as of this encounter Results Not on filedocumented in this encounter Visit Diagnoses Diagnosis Hypothyroidism, unspecified type documented in this encounter Insurance Payer Benefit Plan / Subscriber ID Effective Phone Address T e Group Dates [facility] [id number] 2017-Pres [address] Medic aid HEALTH CHOICE HEALTH CHOICE ent [id number] - MANAGED MEDICAID [place], [place] [phone] [facility] [id number] 2015-Pres [phone] [address] Medi caid ent [phone] [place] [address] documented as of this encounter Advance Directives Type Date Recorded Patient Frame Changer Explanati on Advance Directives and Living Will Power of Rodding Machine Tender
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
--- OUTSIDE RECORDS SUMMARY | 2020-10-06 17:35 | XMS REPORT | Summary of Care ---
:1985 Author Organization [facility] Address [address] [place] [address] Care Team Providers Name Role Phone Maurizio Holbrook Insurance Hmo MD Drew Primary Care Provider Encounter Details Date Type Department Care Team Description 10/06/2020 Patient Secure [facility] Family Luis Russell Anx iety; [facility] Hypothyroidism, unspecified type [address] [place] [phone] Allergies Active Allergy Reactions Severity Noted Date [...] 2 mg TAKE ONE (1) 60 tablet 0 10/06/2020 Active tabletIndications: TABLET BY Anxiety MOUTH TWICE A DAY NEEDED FOR SLEEP. levothyroxine 100 Take 1 30 tablet 0 10/06/2020 A ctive mcg tablet by tabletIndications: mouth every Hypothyroidism, morning. unspecified type ALPRAZolam 2 mg TAKE ONE (1) 60 tablet 5 03/31/2020 Discontinued tabletIndications: TABLET BY 1 ( Reorder) Anxiety MOUTH TWICE A DAY NEEDED FOR SLEEP. levothyroxine 100 Take 1 30 tablet 0 [...] with No / Unsure 10/05/2020 2:21 PM CLIENT EXPERIENCE CONSULTANT someone who was confirmed or suspected to have Coronavirus / COVID-19? documented as of this encounter Last Filed Vital Signs Not on filedocumented in this encounter Miscellaneous Notes Telephone Encounter - Natalie Ashley LVN - 10/06/2020 10:46 AM CST Sasha Orourke Adc Pob [facility] Med Nurse I had to get Covid tested yesterday so I canceled my appointment this morning as soon as I get my results back I want to schedule an appointment because I am out of my refills do you think there's anyway I can have my alprazolam and levothyroxine approved? Just one time? H-E-B sent over for approval afew days ago. I was hoping he could approve them this once because I am completely out and I'll be in as soon as I know my results. I can also send proof I got it done yesterday if needed. documented in this encounter Plan of Treatment Date Type Specialty Care Team Description [facility] [address] [place] [address] [phone] 11/03/2020 Office Visit Family Medicine Luis Russell MD [address] [place] [phone] 10/05/2021 [facility] [address] [place] [address] [phone] Health Maintenance Due Date Last Done Comments [...] filedocumented in this encounter Visit Diagnoses Diagnosis Anxiety Anxiety state, unspecified Hypothyroidism, unspecified type documented in this encounter Insurance Payer Benefit Plan / Subscriber ID Effective Phone Address T e Group Dates [facility] [id number] 2017-Pres [address] Medic aid HEALTH CHOICE HEALTH CHOICE ent [id number] - MANAGED MEDICAID [place] [phone] [facility] [id number] 2015-Pres [phone] Medi caid ent [phone] [place] [address] documented as of this encounter Advance Directives Type Date Recorded Patient Developer Architect Explanati on Advance Directives and Living Will Power of Development Professional
[2020-10-06 18:48] LABS: Urine Blood TRACE (NEG); Urine Glucose NEGATIVE (NEG); Urine Protein NEGATIVE (NEG); Urine pH 8.5 (5.0-7.0)
--- NOTE | 2020-10-06 20:40 | ER ---
Nurse's Notes [facility] Name: Rina Orourke Age: 35 yrs Sex: Female : 1985 Arrival Date: 10/06/2020 Time: 17:35 Bed External Waiting Private MD: Diagnosis: Presentation: 10/06 18:00 Chief complaint: Patient states: Right lower back pain since Sunday. Pain wraps around ll1 R flank to RLQ now. L lower back pain for 2 days, starting to wrap L flank now. + urine frequency, but urinating normal amounts. Coronavirus screen: Client denies travel out of the [place] in the last 14 days. At this time, the client does not indicate any symptoms associated with coronavirus-19. Ebola Screen: Patient denies travel to an Ebola-affected area in the 21 days before illness onset. Initial Sepsis Screen: Does the patient meet any 2 criteria? No. Patient's initial sepsis screen is negative. Does the patient have a suspected source of infection? Yes: Dysuria/Frequency/Urgency/UTI. Risk Assessment: Do you want to hurt yourself or someone else? Patient reports no desire to harm self or others. Onset of symptoms was October 03, 2020. 18:00 Method Of Arrival: Ambulatory ll1 18:00 Acuity: EARLINE 3 ll1 Historical: - Allergies: 18:05 PENICILLINS; ll1 - PMHx: 18:05 Anxiety; Depression; Hypothyroidism; ll1 - PSHx: 18:05 endoscopy; ll1 - Immunization history:: Flu vaccine is not up to date. - Social history:: Smoking status: Reported history of juuling and/or vaping. Vital Signs: 18:00 BP 133 / 94; Pulse 88; Resp 17; Temp 98.0; Pulse Ox 100% ; Weight 86.18 kg; Height 5 ll1 ft. 5 in. (165.10 cm); Pain 7/10; 19:35 BP 116 / 86 LA (man/reg); Pulse 89; Resp 18; Temp 98.5; Pulse Ox 100% on R/A; Pain 2/10;jp3 18:00 Body Mass Index 31.62 (86.18 kg, 165.10 cm) ll1 ED Course: 17:35 Patient arrived in ED. ds1 18:04 Triage completed. ll1 18:05 Arm band placed on. ll1 19:24 Sofya Torres [facility]-C [facility] kb 19:25 Romario Drake MD is Attending Physician. kb 19:25 Urine collected: clean catch specimen, clear, rina colored. jp3 19:36 Bed in low position. Call light in reach. Side rails up X 1. Warm blanket given. Verbal jp3 reassurance given. Pulse ox on. NIBP on. 19:36 Patient maintains SpO2 saturation greater than 95% on room air. jp3 19:37 Urine --Ancillary (enter results) Sent. jp3 19:37 Urine Dipstick--Ancillary (enter results) Sent. jp3 19:47 Omar Hernandes, RN is Primary Nurse. jb4 Administered Medications: No medications were administered Point of Care Testing: Urine : 19:36 hCG Reading: Negative; Control Reading: Positive; jp3 Outcome: 20:39 Eloped from patient exam room, before seeing physician Time discovered patient gone: sg October 06, 2020 at 20:32 20:39 Condition: stable 20:40 Patient left the ED. sg Signatures: Sofya Torres FNP-C FNP-Demario Montague RN RN Cathi Warren ds1 Omar Hernandes, RN RN jb4 Toi Redman jp3 Nica Zuniga, KARI RN ll1
== END 2020-10-06 20:40 | disposition left against medical advice (07) ==
LOC: ER 17:32
DX: Z53.21 Procedure and treatment not carried out due to patient leaving prior to being seen by health care provider (principal)
CPT/HCPCS: 81003; 81025; 99284